=== PATIENT | female | born 1975 | race Caucasian/White ===

== ENCOUNTER → 2018-09-06 07:55 | Outpatient (CLI) | payer OTHER, SELFPAY ==
--- NOTE | 2018-09-06 07:59 | BI_ITS ---
MAMMOGRAPHY - BILATERAL SCREENING 3-D CIERRA SYNTHESIS REASON FOR EXAM: Female, 42 years old. Bilateral Screening 3-D tomosynthesis PERTINENT HISTORY: Asymptomatic. No significant family history. TECHNIQUE: 2-D mammograms and 3-D Cierra synthesis of the breast (s) were performed. CAD was performed. Left mole marked. Right thickened area since 2014 unchanged as documented by [employer]. COMPARISON: 06/04/2015 FINDINGS: The breast composition is extremely dense which lowers sensitivity of mammography. Scattered benign appearing calcifications are seen. No dense spiculated dominant masses or suspicious microcalcification cluster are identified. No new architectural distortion, asymmetric density, adenopathy, skin thickening or nipple retraction identified. BI/SCREENING MAMM (CAD), BILAT IMPRESSION: No mammographic sign of malignancy. Routine yearly mammograms recommended. ASSESSMENT CATEGORY: BIRADS Category 2: Benign. A letter regarding these results will be sent to the patient by the facility within 30 days. FOLLOW UP RECOMMENDATION: Yearly follow up mammogram recommended. (A) If clinically indicated, MRI breasts is more sensitive for pathology with extremely dense breasts. Negative mammographic results should not deter biopsy as any palpable lesion if present should be followed based on clinical grounds and biopsy performed if clinically persistent for 3 months or increasing size. Approximately 10% of breast cancers are not detected by mammography. A normal mammogram should not delay biopsy of a clinically suspicious abnormality. Dense breast tissue may obscure neoplasm. Electronically Signed: Thom Martinez, at 19:04 EDT Tel , Service support ,
== END ==
PROVIDERS: Family Provider Family Medicine; PCP Family Medicine; Visit Provider Obstetrics & Gynecology
DX: Z12.31 Encounter for screening mammogram for malignant neoplasm of breast (principal)
CPT/HCPCS: 77063; 77067

== ENCOUNTER → 2019-09-18 | Outpatient (CLI) | payer OTHER, SELFPAY ==
[2019-09-24 12:51] LABS: HPV Reflexed? NOT INDICATED
== END | disposition home or self-care (01) ==
LOC: LABSPEC 14:08
PROVIDERS: Visit Provider Obstetrics & Gynecology
DX: Z12.4 Encounter for screening for malignant neoplasm of cervix (principal)
CPT/HCPCS: 88175; G0145

== ENCOUNTER → 2019-10-18 07:51 | Outpatient (CLI) | payer OTHER, SELFPAY ==
--- NOTE | 2019-10-18 07:52 | BI_ITS ---
MAMMOGRAPHY - BILATERAL SCREENING REASON FOR EXAM: Female, 43 years old. Routine annual screening examination. PERTINENT HISTORY: Non-contributory. TECHNIQUE: Digital bilateral breast cierra (3D mammographic acquisition) in the CC and MLO projections. 2-D mediolateral oblique (MLO) and craniocaudad (CC) views of both breasts were obtained. CAD: Full Field Digital Mammography with Computer Added Detection was performed. COMPARISON: Comparison is made with prior study dated September 06, 2018 and June 04, 2015. FINDINGS: Breast Composition: The breasts are extremely dense, which lowers the sensitivity of mammography. There are no dominant masses or suspicious calcifications. No other significant abnormalities are identified. There has been no significant change since the prior study. BI/SCREEN MAMM (CAD) W/CIERRA BILAT IMPRESSION: Stable bilateral screening mammogram. Yearly follow-up mammogram recommended. (A) ASSESSMENT CATEGORY: BIRADS Category 1: Negative. A letter regarding these results will be sent to the patient by the facility within 30 days. Approximately 10% of breast cancers are not detected by mammography. A normal mammogram should not delay biopsy of a clinically suspicious abnormality. [id number] Electronically Signed: Jose Johnston, at 8:49 EST , Service support ,
== END ==
PROVIDERS: Family Provider Family Medicine; PCP Family Medicine; Referring Provider Obstetrics & Gynecology; Visit Provider Obstetrics & Gynecology
DX: Z12.31 Encounter for screening mammogram for malignant neoplasm of breast (principal)
CPT/HCPCS: 77063; 77067

== ENCOUNTER → 2020-10-20 07:19 | Outpatient (CLI) | payer OTHER, SELFPAY ==
--- NOTE | 2020-10-20 07:22 | BI_ITS ---
MAMMOGRAPHY - BILATERAL SCREENING REASON FOR EXAM: Female, 44 years old. Routine annual screening examination. PERTINENT HISTORY: Screening TECHNIQUE: Digital bilateral breast cierra (3D mammographic acquisition) in the CC and MLO projections. 2-D mediolateral oblique (MLO) and craniocaudad (CC) views of both breasts were obtained. CAD: Full Field Digital Mammography with Computer Added Detection was performed. COMPARISON: Previous mammogram obtained on 10/18/2019 FINDINGS: Breast Composition: Dense There are no dominant masses. There are some suspicious microcalcifications noted in the superior lateral aspect of the right breast. These are of uncertain etiology and could be due to sclerosing adenosis, however, carcinoma in situ cannot be completely excluded. For this reason a stereotactic right breast biopsy is recommended for further evaluation.. No other significant abnormalities are identified. BI/SCREEN MAMM (CAD) W/CIERRA BILAT IMPRESSION: Indeterminate microcalcifications are noted in the lateral aspect of the right breast at the 9 o''clock position. Magnified compression spot images of these calcifications and a true lateral projection are recommended for further evaluation. (A) Recall Side: Right Breast ASSESSMENT CATEGORY: BIRADS Category 0: Incomplete. Need additional imaging evaluation. A letter regarding these results will be sent to the patient by the facility within 30 days. Approximately 10% of breast cancers are not detected by mammography. A normal mammogram should not delay biopsy of a clinically suspicious abnormality. [id number] Electronically Signed: Dajuan John, at 17:22 EST Tel , Service support ,
== END ==
PROVIDERS: PCP Family Medicine; Referring Provider Obstetrics & Gynecology; Visit Provider Obstetrics & Gynecology
DX: Z12.31 Encounter for screening mammogram for malignant neoplasm of breast (principal)
CPT/HCPCS: 77063; 77067

== ENCOUNTER → 2020-10-22 13:21 | Outpatient (CLI) | payer OTHER, SELFPAY ==
--- NOTE | 2020-10-22 13:23 | BI_ITS ---
MAMMOGRAPHY - UNILATERAL DIAGNOSTIC: RIGHT BREAST REASON FOR EXAM: Female, 44 years old. RT AV MAGS FOR CALC PERTINENT HISTORY: Non-contributory. TECHNIQUE: Digital examination. Mediolateral oblique (MLO) and craniocaudad (CC) views of the breast were obtained. CAD: COMPARISON: Previous mammogram obtained on 10/18/2019, 10/20/2020 FINDINGS: Breast Composition: Dense There are suspicious microcalcifications noted involving the middle depth of the lateral aspect of the right breast at the 9 o''clock position. These calcifications were circled on the submitted images including the magnified compression spot images in the MLO and craniocaudal projection and a true lateral projection. It must be noted that on the true lateral projection of the microcalcifications demonstrate layering. BI/DIAG MAMM W/CAD, UNILAT IMPRESSION: Suspicious microcalcifications are noted in the lateral aspect of the right breast at the 9 o''clock position which have increased in number. These calcifications are viewed with concern and a stereotactic breast biopsy is recommended for further evaluation. ASSESSMENT CATEGORY: BIRADS Category 4: Suspicious - Biopsy Should Be Considered. A letter regarding these results will be sent to the patient by the facility within 30 days. Approximately 10% of breast cancers are not detected by mammography. A normal mammogram should not delay biopsy of a clinically suspicious abnormality. Electronically Signed: Dajuan John, at 10:03 EST Tel , Service support ,
== END ==
PROVIDERS: PCP Family Medicine; Referring Provider Obstetrics & Gynecology; Visit Provider Obstetrics & Gynecology
DX: R92.0 Mammographic microcalcification found on diagnostic imaging of breast (principal)
CPT/HCPCS: 77065

== ENCOUNTER → 2020-10-31 10:29 | Outpatient (CLI) | payer OTHER, SELFPAY ==
[2020-10-27 12:09] VITALS: BMI 23.1
--- NOTE | 2020-10-31 | BRBX_PTH ---
PATIENT: VIKI MCINTOSH LOC: [facility] U#:[id number] AGE/SX: 49/F ROOM: RE10/31/[address]: Dr. Thom Laird MD : 1975 BED: DIS: SPEC #: [id number] RECD: 10/31/20 12:34 STATUS: MACRINA VIKASH #: [id number] RADHA: 10/31/20 00:[address]: Thom Laird DEPT: SURGICAL PATHOLOGY RECD BY: Ciro Austin ENTERED: 10/31/20 12:34 SP TYPE: BREAST BX OTHR DR: Dr. Simona Melvin DO Tissues: Right breast, NOS Procedures: Surgery Specimen Level IV HEADER OPERATION: Right breast stereotactic needle core biopsy PRE-OP DIAGNOSIS: Microcalcifications TISSUE SUBMITTED: Right breast ISCHEMIC TIME: 2 minutes FIXATION TIME: 56.5 hours MICROSCOPIC DIAGNOSIS Right breast, stereotactic needle core biopsy: Fibrocystic change. Focal intraductal hyperplasia without atypia. Banal microcalcifications. AM:maritza 11/03/20 MICROSCOPIC DESCRIPTION Slides are reviewed. GROSS DESCRIPTION Received in fixative is one container labeled with the patient's name and designated right breast. The specimen consists of multiple irregular and elongated fragments of majano-yellow soft tissue that in aggregate measure 5.5 x 3 x 0.2 cm. The specimen is totally submitted in two cassettes. / AM:maritza 10/31/20 TC:5 CPT: 88831
--- NOTE | 2020-10-31 10:00 | HP.PCM_ITS ---
Problem List (1) Abnormal mammogram of right breast Status: Acute History and Physical Date of Admission: 10/31/20 Intake Visit Reasons: Abnormal mammogram/stereo Chief Complaint: right breast calcs. Patient Transport Officer Required: No Is patient in pain?: No Allergies No Known Allergies Allergy (Verified 10/27/20 12:11) Medications multivitamin 1 tab PO DAILY 10/27/20 [History Confirmed 10/27/20] Is last menstrual period known: No Post menopausal: No Patient : No PFSH Medical History (Updated 10/27/20 @ 12:[address] Thom Laird MD) Abnormal mammogram of right breast (Acute) No significant medical problems (Acute) Surgical History (Updated 10/27/20 @ 12:08 by Rosa Marcos) History of wisdom tooth extraction (Acute ~1995) Family History (Updated 10/27/20 @ 12:09 by Rosa Marcos) Father Heart disease Hypertension Mother Osteoarthritis Social History (Updated 10/27/20 @ 12:[address] Thom Laird MD) Smoking Status: Never smoker HPI HPI HPI: VIKI MCINTOSH, is a 44 F who presents to the office today for surgical consultation regarding an abnormal mammogram. She is a symptomatic. Kofi is her . 44-year-old female. G3, . Menarche at age 14. First child was born when she was 28. She did breast-feed. No history of breast biopsies. She had been on an estrogen modulating treatment for about 7 years. This was to assist with menstrual periods. She stopped that approximate 1 year ago. Family history is negative for breast cancer. She was ill September 10 with COVID-19. More mild symptoms. 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 Currently she is asymptomatic. She has not been able to detect any mass or abnormality. Routine mammographic imaging is noted to below demonstrates clustered microcalcifications upper outer quadrant right breast. [facility] Imaging Services [address] [place] [address] SCREEN MAMM (CAD) W/CIERRA CLAY MR#: [id number]:[id number] Name: VIKI MCINTOSH GABBIENRep #:[id number] : [id number] [id number] From: Dajuan John DO PCP:Dr. Simona Melvin, DO Status:REG CLI Study:SCREEN MAMM (CAD) W/CIERRA BILAT Date of Exam:10/20/20 Exam#[id number] Ordering Dr: Cheryl Block MD MAMMOGRAPHY - BILATERAL SCREENING REASON FOR EXAM: Female, 44 years old. Routine annual screening examination. PERTINENT HISTORY: Screening TECHNIQUE: Digital bilateral breast cierra (3D mammographic acquisition) in the CC and MLO projections. 2-D mediolateral oblique (MLO) and craniocaudad (CC) views of both breasts were obtained. CAD: Full Field Digital Mammography with Computer Added Detection was performed. COMPARISON: Previous mammogram obtained on 10/18/2019 FINDINGS: Breast Composition: Dense There are no dominant masses. There are some suspicious microcalcifications noted in the superior lateral aspect of the right breast. These are of uncertain etiology and could be due to sclerosing adenosis, however, carcinoma in situ cannot be completely excluded. For this reason a stereotactic right breast biopsy is recommended for further evaluation.. No other significant abnormalities are identified. BI/SCREEN MAMM (CAD) W/CIERRA BILAT IMPRESSION: Indeterminate microcalcifications are noted in the lateral aspect of the right breast at the 9 o''clock position. Magnified compression spot images of these calcifications and a true lateral projection are recommended for further evaluation. (A) Recall Side: Right Breast ASSESSMENT CATEGORY: BIRADS Category 0: Incomplete. Need additional imaging evaluation. A letter regarding these results will be sent to the patient by the facility within 30 days. Approximately 10% of breast cancers are not detected by mammography. A normal mammogram should not delay biopsy of a clinically suspicious abnormality. [id number] Electronically Signed: Dajuan John, at 17:22 EST Tel , Service support , [facility] Imaging Services [address] [place] [address] DIAG MAMM W/CAD, UNILAT MR#: [id number] Name: VIKI MCINTOSH #:[id number] : 1975F [id number] From: Dajuan John DO PCP:Dr. Simona Melvin DO Status:REG CLI Study:DIAG MAMM W/CAD, UNILAT Date of Exam:10/22/20 Exam#[id number] Ordering Dr: Cheryl Block MD MAMMOGRAPHY - UNILATERAL DIAGNOSTIC: RIGHT BREAST REASON FOR EXAM: Female, 44 years old. RT AV MAGS FOR CALC PERTINENT HISTORY: Non-contributory. TECHNIQUE: Digital examination. Mediolateral oblique (MLO) and craniocaudad (CC) views of the breast were obtained. CAD: COMPARISON: Previous mammogram obtained on 10/18/2019, 10/20/2020 FINDINGS: Breast Composition: Dense There are suspicious microcalcifications noted involving the middle depth of the lateral aspect of the right breast at the 9 o''clock position. These calcifications were circled on the submitted images including the magnified compression spot images in the MLO and craniocaudal projection and a true lateral projection. It must be noted that on the true lateral projection of the microcalcifications demonstrate layering. BI/DIAG MAMM W/CAD, UNILAT IMPRESSION: Suspicious microcalcifications are noted in the lateral aspect of the right breast at the 9 o''clock position which have increased in number. These calcifications are viewed with concern and a stereotactic breast biopsy is recommended for further evaluation. ASSESSMENT CATEGORY: BIRADS Category 4: Suspicious - Biopsy Should Be Considered. A letter regarding these results will be sent to the patient by the facility within 30 days. Approximately 10% of breast cancers are not detected by mammography. A normal mammogram should not delay biopsy of a clinically suspicious abnormality. Electronically Signed: Dajuan John, at 10:03 EST Tel , Service support , HPI HPI HPI: VIKI MCINTOSH, is a 44 F who presents to the office today for ROS General General: Yes fatigue; no weight change, appetite, colon cancer, breast cancer or weakness HEENT HEENT: No difficulty swallowing, eye injury, eye surgery, swollen glands or hoarseness Endo Endocrine: No thyroid disease, diabetes mellitus, thyroid cancer, Hair loss, heat intolerance or cold intolerance Breast Breast: Yes abnormal mammogram; no left breast lump, right breast lump, nipple discharge, breast pain, abnormal US or breast enlargement Musc Musculoskeletal: No back problems, arthritis, rheumatoid arthritis, gout or joint pain Cardio Cardiovascular: No murmur, pacemaker, heart disease, atrial fibrillation, high blood pressure, heart attack, heart stent, palpitations, shortness of breat with exertion or chest pain Psych Psychiatric: No depression, anxiety or hearing voices Resp Respiratory: No shortness of breath, No sleep apnea, No cough, No COPD, No asthma, No emphysema, No wheezing Gastro Gastrointestinal: No abdominal pain, No nausea or vomiting, No diarrhea, No constipation, No blood in stool, No acid reflux, No hemorrhoids, No ulcers, No gallbladder problem, No black,tarry stools Tone Hematologic: No blood thinners, No blood disorders, No bleeding, No anemia, No blood clots Neuro Neurologic: No weakness Exam Chest Breast Palpation: No nipple discharge Other: Right breast: Diffuse rubbery nodular change. No focally concerning mass. No axillary or clavicular adenopathy. No nipple discharge. Left breast: No focal mass. Diffuse rubbery fibrous nodularity. No nipple discharge. No axillary or clavicular adenopathy Cardio Heart Sounds: no murmurs Assessment & Plan Problems 1. Abnormal mammogram of right breast R92.8 Plan Clustered microcalcifications upper outer right breast. BI-RADS Category 4. Recommendation for stereotactic needle core biopsy. The patient is aware of the technique, benefit, risk, alternatives. She has had an opportunity to ask and have questions answered. We will schedule and expedite her care. I appreciate the opportunity of assisting with her surgical care Copy: Dr. Simona Melvin and Dr. Cheryl Laird M.D., F.A.C.S. I have re-examined the patient. There are no clinical changes since date of exam. Procedure Criteria Procedure Type: Elective COVID Risk Discussion: The surgeon/proceduralist and patient have discussed in detail the risk of exposure to and/or potential harm posed by the COVID-19 virus with having a surgery/procedure at this time versus the risk of delaying the surgery/procedure. It is not possible to know either the risk of delaying the surgery or procedure or chance of getting an infection with perfect accuracy, but a joint decision was made between the patient and the surgeon/proceduralist to proceed at this time with the scheduled surgery/procedure as indicated on the consent form.
--- NOTE | 2020-10-31 11:33 | PCM.OPRPT ---
Problem List (1) Abnormal mammogram of right breast Status: Acute Report of Operation Date of Procedure: 10/31/20 Pre-Operative Diagnosis: Microcalcifications upper outer right breast Post-Operative Diagnosis: Same Surgery/Procedure Performed:: Stereotactic needle core biopsy upper outer quadrant right breast Description of Surgical Findings:: Timeout and informed consent was obtained. 44-year-old female was taken to the stereotactic room placed prone on the table the right breast was placed in lateral medial view on fast view was obtained demonstrating microcalcifications stereotactic injures obtained. Digital information was taken on a single target site. The breast was prepped with Betadine. 1% lidocaine was used as a local anesthetic. A total of 10 cc was used. A small stab incision was created. The resolved needle was advanced to prefire depth. Pre and post fire films were obtained. The needle was then advanced to depth. And the caliber of the core was diminished to 18 mm. 6 cores were obtained. Specimen mammogram was obtained demonstrating several calcifications present. I elected to take 6 more cores. A few additional microcalcifications were noted and there was additional 6 cores. A mini marking clip was left in position at 12:00. On fast view demonstrated now elimination of the previous calcifications and a nicely placed a marking clip. She was released from the device. Pressure was held for hemostasis. Steri-Strip Telfa OpSite dressing applied. The specimens were immediately transferred to formalin for analysis. No apparent complication. Specimens breast cores. Drains none. Blood loss minimal. Thom Laird M.D., F.A.C.S. Type of Anesthesia:: Local
== END ==
PROVIDERS: PCP Family Medicine; Referring Provider Surgery; Visit Provider Surgery
DX: R92.8 Other abnormal and inconclusive findings on diagnostic imaging of breast (principal)
CPT/HCPCS: 19081; 88305; J7050

== ENCOUNTER 2021-12-22 07:28 | Outpatient (CLI) | payer OTHER, SELFPAY ==
--- NOTE | 2021-12-22 07:31 | BI_ITS ---
MAMMOGRAPHY - BILATERAL SCREENING REASON FOR EXAM: Female, 46 years old. Routine annual screening examination. PERTINENT HISTORY: Non-contributory. Prior right stereotactic breast biopsy. TECHNIQUE: Digital bilateral breast cierra (3D mammographic acquisition) in the CC and MLO projections. 2-D mediolateral oblique (MLO) and craniocaudad (CC) views of both breasts were obtained. CAD: Full Field Digital Mammography with Computer Added Detection was performed. COMPARISON: Comparison is made with prior examination of 10/20/2020 and 10/18/2019. FINDINGS: Breast Composition: The breasts are extremely dense, which lowers the sensitivity of mammography. There are no dominant masses or suspicious calcifications. The previously seen clustered microcalcification in the deep upper lateral aspect of the right breast is no longer present secondary to prior biopsy. No other significant abnormalities are identified. BI/SCRN MAMM (CAD)W/CIERRA BILAT IMPRESSION: Stable bilateral screening mammogram. Yearly follow-up mammogram recommended. (A) ASSESSMENT CATEGORY: BIRADS Category 2: Benign. A letter regarding these results will be sent to the patient by the facility within 30 days. Approximately 10% of breast cancers are not detected by mammography. A normal mammogram should not delay biopsy of a clinically suspicious abnormality. [id number] Electronically Signed: Jose Johnston MD at 8:41 EST , Service support ,
== END 2021-12-22 23:59 | disposition short-term general hospital (02) ==
LOC: OPBI 07:29
PROVIDERS: PCP Family Medicine; Referring Provider Obstetrics & Gynecology; Visit Provider Obstetrics & Gynecology
DX: Z12.31 Encounter for screening mammogram for malignant neoplasm of breast (principal)
CPT/HCPCS: 77063; 77067

== ENCOUNTER 2022-01-13 10:09 | Outpatient (CLI) | payer OTHER, SELFPAY ==
[2022-01-19 17:26] LABS: HPV APTIMA, High Risk Negative (Negative)
== END 2022-01-13 23:59 | disposition home or self-care (01) ==
LOC: LABSPEC 10:13
PROVIDERS: PCP Family Medicine; Visit Provider Obstetrics & Gynecology
DX: Z12.4 Encounter for screening for malignant neoplasm of cervix (principal)
CPT/HCPCS: 87624; 88175; G0145

== ENCOUNTER → 2023-01-05 | Outpatient (CLI) | payer OTHER, SELFPAY ==
--- NOTE | 2023-01-05 08:01 | BI_ITS ---
MAMMOGRAPHY - BILATERAL SCREENING REASON FOR EXAM: Female, 47 years old. Routine annual screening examination. PERTINENT HISTORY: Non-contributory. Right stereotactic breast biopsy. TECHNIQUE: Digital bilateral breast cierra (3D mammographic acquisition) in the CC and MLO projections. 2-D mediolateral oblique (MLO) and craniocaudad (CC) views of both breasts were obtained. CAD: Full Field Digital Mammography with Computer Added Detection was performed. COMPARISON: Comparison is made with prior study dated 12/22/2021 and 10/22/2020. FINDINGS: Breast Composition: The breasts are extremely dense, which lowers the sensitivity of mammography. There are no dominant masses or suspicious calcifications. A tissue clip marker is once again seen in the central lateral aspect of the right breast. No other significant abnormalities are identified. There has been no significant change since the prior study. BI/SCRN MAMM (CAD)W/CIERRA BILAT IMPRESSION: Stable bilateral screening mammogram. Yearly follow-up mammogram recommended. (A) ASSESSMENT CATEGORY: BIRADS Category 2: Benign. A letter regarding these results will be sent to the patient by the facility within 30 days. Approximately 10% of breast cancers are not detected by mammography. A normal mammogram should not delay biopsy of a clinically suspicious abnormality. [id number] Electronically Signed: Jose Johnston MD at 8:41 EST ,
== END | disposition home or self-care (01) ==
LOC: OPBI 07:59
PROVIDERS: PCP Family Medicine; Visit Provider Family Medicine
DX: Z12.31 Encounter for screening mammogram for malignant neoplasm of breast (principal)
CPT/HCPCS: 77063; 77067

== ENCOUNTER → 2023-01-19 | Outpatient (CLI) | payer OTHER, SELFPAY ==
[2023-01-25 14:24] LABS: HPV APTIMA, High Risk Negative (Negative)
== END | disposition home or self-care (01) ==
PROVIDERS: PCP Family Medicine; Referring Provider Registered Nurse; Visit Provider Registered Nurse
DX: Z12.4 Encounter for screening for malignant neoplasm of cervix (principal)
CPT/HCPCS: 87624; 88175; G0145

== ENCOUNTER 2023-10-10 11:47 | Day surgery (SDC) | payer OTHER, SELFPAY ==
[2023-10-10] VITALS (8 sets, daily range): BP systolic 97–118; BP diastolic 58–71; PULSE 59–77; RESP 16; TEMP 36.2–37.1; O2SAT 100; BMI 21.4
--- NOTE | 2023-10-10 12:00 | H&P.OPEN ---
[facility] - General General Date of Service: 10/10/23 HPI Narrative VIKI MCINTOSH, is a 47 F who presents for screening colonoscopy. Patient never had previous colonoscopy. Patient denies any chronic abdominal pain/nausea/vomiting/reflux. Patient's bowel movements about every other day. Patient denies any blood. Patient denies any family history of colon cancer. [facility] Medical History Abnormal mammogram of right breast Arthritis Easy bruising No significant medical problems Non-smoker Restless legs Wears glasses Home Medications multivitamin 1 tab PO DAILY 10/27/20 [History Last Taken Unknown] vitamin B complex 1 tab PO DAILY 09/30/23 [History Last Taken Unknown] Allergy/AdvReac Type Severity Reaction Status Date / Time No Known Allergies Allergy Verified 10/10/23 12:13 Family History Father Heart disease Hypertension Mother Osteoarthritis Mother Endometrial cancer Surgical History History of wisdom tooth extraction (~1995) Social History adopted: No number of children: 3 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 [employer] sexually active: Yes Smoking Status: Never smoker alcohol intake: current alcohol intake frequency: a few times a month substance use type: does not use caffeine: Yes seatbelt use: always do you feel safe at home: Yes additional social history: spouse kristopher - works at [employer] Past Medical/Surgical History Planned Operation Planned Operative Procedure/s: CSCOPE Previous Hospitalizations/Surgeries HX Hospitalizations: No Any Problems With Anesthesia: No You/Your Family Experience Fever (Hyperthermia) With Anes: No Cholinesterase deficiency: No Cardiovascular Hx Hypertension: No Respiratory Hx Sleep Apnea: No Hx Respiratory Tract Infection/Cold (presently): No Do You Snore Loudly (louder than talking or can be heard): No Do You Often Feel Tired/ Fatigued/ Sleepy Dring Daytime?: No Has Anyone Observed You Stop Breathing During Sleep?: No Result (for STOP score): Negative Smoking Status: Never smoker Neurological Does patient have nerve stimulator: No Reproduction : No Allergies No Known Allergies Allergy (Verified 10/10/23 12:13) Discharge Is Pt Admitted From a Group Home, or a Care Home: No After D/C, Where Do you Plan to Go: Return Home Physical Exam Const alert, oriented x3 and no apparent distress HEENT normocephalic and head/scalp atraumatic Resp normal respiratory effort Cardio regular rate GI soft to palpation and non-tender; Negative for non-distended Palpation: Negative for guarding Extremity no clubbing, cyanosis or edema Skin no rashes or lesions noted Neuro CN's II-XII intact bilaterally Psych mental status grossly normal Assessment & Plan Assessment/Plan (1) Encounter for screening for malignant neoplasm of colon: Surgery Risks - Colonoscopy I discussed with the patient the risks of the procedure: Yes Risks Include but are not Limited To: Risks include but are not limited to: Bleeding, perforation requiring further surgery, inability to complete colonoscopy requiring barium enema.
[2023-10-10] MEDS: Lactated Ringers 1,000 ML 15 ML IV (12:14)
[2023-10-10 12:16] LABS: Internal QC Validated? YES +Cl - CLEAR BKGD; Pregnancy, Urine Negative Negative; Record Kit Lot#,Urine Preg HCG0000667200
--- NOTE | 2023-10-10 13:30 | OP.COLON_ITS ---
Patient Name: So Underwood Procedure Date: 10/10/2023 12:57 PM Date of : 1975 Age: 47 Procedure: Colonoscopy Indications: Screening for colorectal malignant neoplasm Providers: Ryanne Wood MD Medicines: Monitored Anesthesia Care Patient Profile: Last Colonoscopy: none. The patient's first colonoscopy is today. Complications: No immediate complications. Procedure: Pre-Anesthesia Assessment: - Prior to the procedure, a History and Physical was performed, and patient medications and allergies were reviewed. The patient's tolerance of previous anesthesia was also reviewed. The risks and benefits of the procedure and the sedation options and risks were discussed with the patient. All questions were answered, and informed consent was obtained. Prior Anticoagulants: The patient has taken no anticoagulant or antiplatelet agents. ASA Grade Assessment: Per anesthesia. After reviewing the risks and benefits, the patient was deemed in satisfactory condition to undergo the procedure. After I obtained informed consent, the scope was passed under direct vision. Throughout the procedure, the patient's blood pressure, pulse, and oxygen saturations were monitored continuously. The was introduced through the anus and advanced to the cecum, identified by appendiceal orifice and ileocecal valve. The colonoscopy was performed without difficulty. The patient tolerated the procedure well. The quality of the bowel preparation was good. Scope In: 1:03:27 PM Scope Withdrawal Time 0 hours 12 minutes 18 seconds Scope Out: 1:25:27 PM Total Procedure Duration Time 0 hours 22 minutes 0 seconds Findings: The perianal and digital rectal examinations were normal. The entire examined colon appeared normal on direct and retroflexion views. Impression: - The entire examined colon is normal on direct and retroflexion views. - No specimens collected. Recommendation: - Discharge patient to home. - Resume previous diet. - Continue present medications. - Repeat colonoscopy in 10 years for screening purposes. Procedure Code(s): --- Professional --- G0121, PT, Colorectal cancer screening; colonoscopy on individual not meeting criteria for high risk Diagnosis Code(s): --- Professional --- Z12.11, Encounter for screening for malignant neoplasm of colon CPT copyright 2021 [employer]. All rights reserved. The codes documented in this report are preliminary and upon project architect review may be revised to meet current compliance requirements. MD Ryanne Nicole MD 10/10/2023 1:30:16 PM This report has been signed electronically. Number of Addenda: 0 Note Initiated On: 10/10/2023 12:57 PM
--- NOTE | 2023-10-10 13:31 | OP.CCLET_ITS ---
10/10/2023 Simona Melvin [address] [place] [address] Re : Colonoscopy procedure for So Underwood Dear Dr. Melvin This procedure was performed on Tuesday, October 10, 2023. My impressions and recommendations are as follows: Impressions : - The entire examined colon is normal on direct and retroflexion views. - No specimens collected. Recommendations : - Discharge patient to home. - Resume previous diet. - Continue present medications. - Repeat colonoscopy in 10 years for screening purposes. My findings are described in the full procedure note, which is enclosed. If I can be of further assistance, please feel free to contact me at Doctor phone number(s): , Work: . Sincerely, MD Ryanne Nicole MD 10/10/2023 1:30:16 PM This report has been signed electronically.
== END 2023-10-10 14:45 | disposition home or self-care (01) ==
LOC: EN 11:49 → AC 11:51
PROVIDERS: Anesthesiology; PCP Family Medicine; Referring Provider Family Medicine; Visit Provider Surgery
PROC: 0DJD8ZZ Inspection of Lower Intestinal Tract, Via Natural or Artificial Opening Endoscopic (ICD-10-PCS; CPT 45378; principal; 2023-10-10 12:55)
DX: Z12.11 Encounter for screening for malignant neoplasm of colon (principal); Z86.16 Personal history of COVID-19
CPT/HCPCS: G0121; 81025; J7120; J2405

== ENCOUNTER → 2024-01-09 | Outpatient (CLI) | payer OTHER, SELFPAY ==
--- NOTE | 2024-01-09 08:01 | BI_ITS ---
MAMMOGRAPHY - BILATERAL SCREENING REASON FOR EXAM: Female, 48 years old. Routine annual screening examination. PERTINENT HISTORY: Non-contributory. Prior right stereotactic breast biopsy. TECHNIQUE: Digital bilateral breast cierra (3D mammographic acquisition) in the CC and MLO projections. 2-D mediolateral oblique (MLO) and craniocaudad (CC) views of both breasts were obtained. CAD: Full Field Digital Mammography with Computer Added Detection was performed. COMPARISON: Comparison is made with prior study to December 2022 and December 22, 2021. FINDINGS: Breast Composition: The breasts are extremely dense, which lowers the sensitivity of mammography. There are no dominant masses or suspicious calcifications. A tissue clip marker is once again seen in the central lateral aspect of the right breast No other significant abnormalities are identified. There has been no significant change since the prior study. BI/SCRN MAMM (CAD)W/CIERRA BILAT IMPRESSION: Stable bilateral screening mammogram. Yearly follow-up mammogram recommended. (A) ASSESSMENT CATEGORY: BIRADS Category 2: Benign. A letter regarding these results will be sent to the patient by the facility within 30 days. Approximately 10% of breast cancers are not detected by mammography. A normal mammogram should not delay biopsy of a clinically suspicious abnormality. [id number] Electronically Signed: Jose Johnston MD at 8:54 EST ,
== END | disposition home or self-care (01) ==
LOC: OPBI 08:00
PROVIDERS: PCP Family Medicine; Referring Provider Registered Nurse; Visit Provider Registered Nurse
DX: Z12.31 Encounter for screening mammogram for malignant neoplasm of breast (principal)
CPT/HCPCS: 77063; 77067

== ENCOUNTER → 2024-01-25 | Outpatient (CLI) | payer OTHER, SELFPAY ==
--- NOTE | 2024-01-25 15:29 | RAD_ITS ---
INDICATION: pain EXAMINATION/TECHNIQUE: X-RAY - LEFT XR Knee Complete 4 VIEWS COMPARISON: No relevant prior comparison study available FINDINGS: SOFT TISSUES: No soft tissue swelling or gas. No radiopaque foreign body. BONES/JOINTS: No acute fracture or subluxation.. Normal alignment. Preservation of the joint space.. No sclerotic or destructive changes observed. RAD/Knee 4 or More Views IMPRESSION: Negative. Electronically Signed: Taylor Pathak MD at 19:19 EST ,
== END | disposition home or self-care (01) ==
LOC: RAD 15:22
PROVIDERS: PCP Family Medicine; Referring Provider Orthopaedic Surgery; Visit Provider Orthopaedic Surgery
DX: M25.562 Pain in left knee (principal)
CPT/HCPCS: 73564

== ENCOUNTER → 2024-12-03 | Outpatient (CLI) | payer OTHER, SELFPAY ==
--- NOTE | 2024-12-03 08:40 | RAD_ITS ---
HISTORY: Pain. TECHNIQUE: XR Hand Min 3 Views. COMPARISON: None. FINDINGS: BONES : No acute fracture identified. Mineralization unremarkable. JOINTS: No dislocation. Joint spaces maintained. RAD/Hand Min 3 Views IMPRESSION: No acute fracture or dislocation identified in the left hand. Electronically Signed: Cynthia Lynch MD at 9:41 EST ,
== END | disposition home or self-care (01) ==
LOC: RAD 08:36
PROVIDERS: PCP Family Medicine; Referring Provider Orthopaedic Surgery; Visit Provider Orthopaedic Surgery
DX: M79.642 Pain in left hand (principal)
CPT/HCPCS: 73130

== ENCOUNTER → 2025-01-14 | Outpatient (CLI) | payer OTHER, SELFPAY ==
--- NOTE | 2025-01-14 08:14 | BI_ITS ---
PROCEDURE: SCRN MAMM (CAD)W/CIERRA BILAT REASON FOR EXAM: F, Age 49 y/o, annual follow-up. Prior right stereotactic breast biopsy. No family history. TECHNIQUE: Bilateral screening digital breast tomosynthesis with 2D and 3D images. Computer aided detection. COMPARISON: Prior exam(s) dating back to January 09, 2024.. FINDINGS: The breasts are extremely dense which lowers the sensitivity of mammography. Stable examination a tissue clip marker is once again seen in the deep upper lateral aspect of the right breast. No suspicious masses, areas of developing architectural distortion, or suspicious calcifications. BI/SCRN MAMM (CAD)W/CIERRA BILAT IMPRESSION: BI-RADS 2: BENIGN. RECOMMEND ANNUAL MAMMOGRAPHIC SCREENING. Follow-up code: Routine Follow-up The patient will be notified of the results by letter. Reading Location: [id number]
== END | disposition home or self-care (01) ==
LOC: OPBI 08:12
PROVIDERS: PCP Family Medicine; Referring Provider Family Medicine; Visit Provider Family Medicine
DX: Z12.31 Encounter for screening mammogram for malignant neoplasm of breast (principal)
CPT/HCPCS: 77063; 77067

== ENCOUNTER → 2025-01-31 | Outpatient (CLI) | payer OTHER, SELFPAY ==
[2025-01-31 13:03] LABS: Vitamin B12 724 pg/mL (180-914); Vitamin D,25 Hydroxy 44.2 ng/mL (30-100)
== END | disposition home or self-care (01) ==
LOC: BWCLAB 10:16
PROVIDERS: PCP Family Medicine; Referring Provider Nurse Practitioner Family; Visit Provider Nurse Practitioner Family
DX: Z13.21 Encounter for screening for nutritional disorder (principal)
CPT/HCPCS: 36415; 82306; 82607

== ENCOUNTER → 2025-07-22 | Outpatient (CLI) | payer OTHER, SELFPAY ==
[2025-07-22 11:37] LABS: Follicle Stimulating Hormone 4.8 mIU/mL
== END | disposition home or self-care (01) ==
PROVIDERS: Nurse Practitioner Family; PCP Family Medicine; Referring Provider Family Medicine; Visit Provider Family Medicine
DX: S50.369A Insect bite (nonvenomous) of unspecified elbow, initial encounter (principal); W57.XXXA Bitten or stung by nonvenomous insect and other nonvenomous arthropods, initial encounter; N95.1 Menopausal and female climacteric states
CPT/HCPCS: 36415; 82670; 83001; 84439; 84443; 86617

== ENCOUNTER → 2025-08-19 | Outpatient (CLI) | payer OTHER, SELFPAY ==
--- NOTE | 2025-08-19 16:25 | US_ITS ---
PROCEDURE: PELVIC W/ TRANSVAGINAL 08/19/2025 REASON FOR EXAM: MENORRHAGIA TECHNIQUE: Procedure Code: [id number] Modality: US Procedure: PELVIC W/ TRANSVAGINAL COMPARISON: None. FINDINGS: Uterus: The anteverted anteflexed uterus measures 7.9 x 4.7 x 3.4 cm. There is a nabothian cyst in the lower uterine segment. Endometrium: The endometrium measures 3 mm in thickness. Right ovary: The right ovary measures 3.1 x 2.1 x 1.3 cm. There is normal blood flow. Left ovary: The left ovary measures 2.4 x 2.1 x 1.7 cm. There is normal blood flow. Other: There are no abnormal adnexal masses or fluid collections. There is no free fluid in the pelvis. The urinary bladder is distended. Reading Location: [id number]
== END | disposition home or self-care (01) ==
LOC: US 16:25
PROVIDERS: PCP Family Medicine; Referring Provider Nurse Practitioner Family; Visit Provider Nurse Practitioner Family
DX: N92.0 Excessive and frequent menstruation with regular cycle (principal)
CPT/HCPCS: 76830; 76856

== ENCOUNTER → 2025-08-21 | Outpatient (CLI) | payer OTHER, SELFPAY | END | disposition home or self-care (01) | LOC: PAVLAB 12:54 | PROVIDERS: PCP Family Medicine; Referring Provider Family Medicine; Visit Provider Family Medicine | DX: T14.8XXA Other injury of unspecified body region, initial encounter (principal); W57.XXXA Bitten or stung by nonvenomous insect and other nonvenomous arthropods, initial encounter | CPT/HCPCS: 36415; 86617 ==

== ENCOUNTER → 2025-09-06 | Outpatient (CLI) | payer OTHER, SELFPAY | END | disposition home or self-care (01) | LOC: RAD 16:39 | PROVIDERS: PCP Family Medicine; Referring Provider Orthopaedic Surgery; Visit Provider Orthopaedic Surgery | DX: M79.641 Pain in right hand (principal) | CPT/HCPCS: 73130 ==